=== PATIENT | male | born 2000 | race Hispanic/Latino ===

== ENCOUNTER 2024-06-25 22:48 | Emergency (ER) | payer BC ==
[2024-06-26] MEDS ORDERED: Mag-Al 1200 mg/1200 mg/30 ML UDCUP ONE (00:22)
[2024-06-26] MEDS ORDERED: Acetaminophen 500 MG TAB ONE (01:10)
[2024-06-26] MEDS ORDERED: Ibuprofen 200 MG TAB ONE (01:10)
== END 2024-06-26 01:25 | disposition home or self-care (01) ==
LOC: CSHERS 22:48
DX: R07.9 Chest pain, unspecified (principal); F17.290 Nicotine dependence, other tobacco product, uncomplicated; Z55.0 Illiteracy and low-level literacy
CPT/HCPCS: 71045; 93005